=== PATIENT | female | born 1990 | race African-American/Black ===

== ENCOUNTER 2018-08-01 13:12 | Emergency (ER) | payer OTHER ==
[2018-08-01 13:43] VITALS: BP 113/67; PULSE 86; TEMP 98.1; BMI 39.4
--- NOTE | 2018-08-01 13:43 | PDOC ---
Rapid Medical Evaluation Chief Complaint: Vaginal Bleeding Time Seen by Provider: 08/01/18 13:41 Medical Evaluation: Allergies Allergy/AdvReac Type Severity Reaction Status Date / Time No Known Allergies Allergy Verified 08/01/18 13:39 08/01/18 13:41 I have performed a brief in-person evaluation of this patient. The patient presents with a chief complaint of:~8 weeks , here w/ vag spotting since yesterday. No clots, abd pain, dysuria, n/v/f/c. . No care or US as of yet Pertinent physical exam findings:Stable I have ordered the following:labs/US The patient will proceed to the ED for further evaluation. Discharge Disposition - Diagnosis Vaginal bleeding - Referrals - Patient Instructions - Post Discharge Activity
[2018-08-01 14:29] LABS: URINE APPEARANCE CLEAR; URINE BILIRUBIN NEGATIVE (<2.0 mg/dL); URINE COLOR YELLOW; URINE GLUCOSE (UA) NEGATIVE (NEGATIVE); URINE KETONE NEGATIVE (NEGATIVE); URINE LEUK ESTERASE NEGATIVE (NEGATIVE); URINE NITRITE NEGATIVE (NEGATIVE); URINE PROTEIN NEGATIVE (NEGATIVE)
[2018-08-01 14:57] LABS: EPI CELLS RARE /HPF (FEW); URINE MUCUS RARE
--- NOTE | 2018-08-01 15:06 | PDOC ---
History of Present Illness - General Chief Complaint: Vaginal Bleeding Stated Complaint: VAGINAL BLEEDING Time Seen by Provider: 08/01/18 13:41 History Source: Patient Exam Limitations: No Limitations - History of Present Illness Initial Comments: 08/01/18 15:06 CHIEF COMPLAINT: Vaginal bleeding HISTORY OF PRESENT ILLNESS: This is an otherwise healthy 28-year-old female LMP 12/5 who presents with scant vaginal bleeding yesterday, none today. She denies abdominal pain, back pain, dysuria, or any other symptoms. Patient does not have an fuel efficient aircraft designer. REVIEW OF SYSTEMS: GENERAL/CONSTITUTIONAL: No fever or chills. No weakness. No weight change. CARDIOVASCULAR: No chest pain or palpitations. RESPIRATORY: No cough, wheezing, or shortness of breath. GASTROINTESTINAL: No nausea, vomiting, diarrhea or constipation. GENITOURINARY: See HPI. MUSCULOSKELETAL: No joint or muscle swelling or pain. No neck or back pain. SKIN: No rash or easy bruising. NEUROLOGIC: No headache, vertigo, loss of consciousness, or loss of sensation. PSYCHIATRIC: No depression or anxiety. ENDOCRINE: No increased thirst. No abnormal weight change. HEMATOLOGIC/LYMPHATIC: No anemia, easy bleeding, or history of blood clots. ALLERGIC/IMMUNOLOGIC: No hives or skin allergy. No latex allergy. PHYSICAL EXAM: GENERAL: The patient is awake, alert, and fully oriented, in no acute distress. HEAD: Normal with no signs of trauma. ENT: Pupils equal, round and reactive to light, extraocular movements intact, sclera anicteric, conjunctiva clear. Neck supple. LUNGS: Clear to auscultation bilaterally. Normal excursion. No respiratory distress or use of accessory muscles. CV: RRR, S1/S2, no MRG. Cap refill < 2 sec. ABDOMEN: Soft, non-distended, non-tender. EXTREMITIES: Normal range of motion, no edema. NEUROLOGICAL: Normal speech, normal gait. CN II-XII grossly intact. PSYCH: Normal mood, normal affect. SKIN: Warm, dry, normal turgor, no rashes or lesions noted. ROAD GRADER: Normal external exam. Cervical os is closed. No CMT or adnexal tenderness. No vaginal bleeding. Past History - Past Medical History Allergies/Adverse Reactions: Allergies Allergy/AdvReac Type Severity Reaction Status Date / Time No Known Allergies Allergy Verified 08/01/18 13:39 Home Medications: Ambulatory Orders NK [No Known Home Medication] 08/01/18 COPD: No - Immunization History Immunization Up to Date: Yes - Suicide/Smoking/Psychosocial Hx Smoking History: Never smoked *Physical Exam - Vital Signs Last Vital Signs Temp Pulse Resp BP Pulse Ox 98.1 F 86 18 113/67 99 08/01/18 13:40 08/01/18 13:40 08/01/18 13:40 08/01/18 13:40 08/01/18 13:40 Moderate Sedation - Procedure Monitoring Vital Signs: Procedure Monitoring Vital Signs Temperature 98.1 F 08/01/18 13:40 Pulse Rate 86 08/01/18 13:40 Respiratory Rate 18 08/01/18 13:40 Blood Pressure 113/67 08/01/18 13:40 O2 Sat by Pulse Oximetry (%) 99 08/01/18 13:40 ED Treatment Course - ADDITIONAL ORDERS Additional order review: Laboratory Results 08/01/18 02:09 Urine Color Yellow Urine Appearance Clear Urine pH 6.0 Ur Specific [place] 1.018 Urine Protein Negative Urine Glucose (UA) Negative Urine Ketones Negative Urine Blood 2+ H Urine Nitrite Negative Urine Bilirubin Negative Urine Urobilinogen 2.0 H Ur Leukocyte Esterase Negative Urine WBC (Auto) 1 Urine RBC (Auto) 4 Ur Epithelial Cells Rare Urine Mucus Rare Medical Decision Making - Medical Decision Making 08/01/18 17:18 A/P: 28-year-old female with first trimester vaginal bleeding. 1. Labs notable for beta hCG [id number] 2. Blood type is Rh+ 3. Ultrasound reviewed: Single live IUP 10 weeks 4 days with heart rate of 141 *DC/Admit/Observation/Transfer Diagnosis at time of Disposition: Threatened - Discharge Dispostion Disposition: HOME Condition at time of disposition: Stable Decision to Admit order: No - Referrals Referrals: Jean-Pierre Pittman MD [Staff Physician] - - Patient Instructions Printed Discharge Instructions: Vaginal Bleeding During Additional Instructions: Rest and avoid any sexual activity while bleeding Take vitamins as prescribed Follow up with fuel efficient aircraft designer (referral enclosed if you do not have one) Return here for bleeding more than one pad per hour or any other concerning symptoms - Post Discharge Activity
== END 2018-08-01 17:26 | disposition home or self-care (01) ==
LOC: JER 13:12
DX: O26.891 Other specified pregnancy related conditions, first trimester (principal); Z3A.00 Weeks of gestation of pregnancy not specified; O20.0 Threatened abortion
CPT/HCPCS: 36415; 76817-TC; 81003; 81015; 84702; 86850; 86900; 86901; 99283-25

== ENCOUNTER 2018-08-25 19:57 | Emergency (ER) | payer OTHER ==
[2018-08-25 20:02] VITALS: BP 131/78; PULSE 87; TEMP 97.7; BMI 44.4
--- NOTE | 2018-08-25 20:23 | PDOC ---
Attending Attestation - HPI HPI: 08/25/18 22:06 The patient is a 28-year-old female with no reported past medical history presents to the emergency department with vaginal bleeding. The patient reports at 5:00 pm today she had mild cramping, following she noticed blood on the toilet paper. The patient states she used tissue for the blood, and since the presentation, she had to change the tissue twice. The patient was seen at the ER for similar symptoms on 08/01/2018, during the visit the patient had u/s done , which was significant for Single live IUP 10 weeks 4 days with a heart rate of 141. The patient reports she has an appointment with [facility] on the of this month. The patient denies having bleeding during prior pregnancies. - Physicial Exam PE: 08/25/18 21:57 GENERAL: The patient is in no acute distress. HEAD: Normal with no signs of trauma. EYES: PERRLA, EOMI, sclera anicteric, conjunctiva clear. ENT: Ears normal, nares patent, oropharynx clear without exudates. Moist mucous membranes. NECK: Normal range of motion, supple without lymphadenopathy, JVD, or masses. LUNGS: Breath sounds equal, clear to auscultation bilaterally. No wheezes, and no crackles. HEART:Regular rate and rhythm, normal S1 and S2 without murmur, rub or gallop. ABDOMEN: No lower abdominal tenderness, no guarding or rebound. No masses palpable. EXTREMITIES: Normal range of motion, no edema. No clubbing or cyanosis. No erythema, or tenderness. NEUROLOGICAL: Cranial nerves II through XII grossly intact. Normal speech. No focal neurological deficits. MUSCULOSKELETAL: Back non-tender to palpation, no CVA tenderness SKIN: Warm, Dry, normal turgor, no rashes or lesions noted. - Medical Decision Making 08/25/18 22:06 Documentation prepared by Tatyana Orlando, acting as medical legal investigator for Taylor Barrios MD. <Tatyana Orlando - Last Filed: 08/25/18 22:06> - Resident Resident Name: [email or web address] - ED Attending Attestation I have performed the following: I have examined & evaluated the patient, The case was reviewed & discussed with the resident, I agree w/resident's findings & plan, Exceptions are as noted - Medical Decision Making 28 yo F approximately 14 weeks presenting to the ER with a complaint of vaginal bleeding Pt had abdominal cramping Not saturating pads Was seen in this er 3 weeks ago for the same Was asked to follow up with OB Pt had an appointment for 09/0608/25/18 22:55 Laboratory Tests 08/25/18 08/25/18 08/25/18 20:38 20:38 20:40 WBC 7.0 Hgb 11.7 Hct 31.8 L Plt Count 193 BUN 9 Creatinine 0.7 Beta HCG, Quant 31874.6 Urine Blood 3+ H Urine Nitrite Negative Ur Leukocyte Esterase 1+ H Urine WBC (Auto) 5 Urine RBC (Auto) 3 US: IUP, FHR COMPARISON: None. Findings: Single live intrauterine with cardiac activity heart 144 bpm. Placenta is anterior in location, not low lying. No evidence of retroplacental hematoma. [place]-rump length measurement 15 weeks 1 day. BPD 14 weeks 5 days. Head circumference 14 weeks 5 days Abdominal circumference 14 weeks 5 days. Femur length 14 weeks 1 day. Impression: 1. Single live intrauterine at approximately 14 weeks 5 days ?1 week 0 days estimated gestational age. VITA based on ultrasound criteria February 18, 2019; clinical dating February 20, 2019. 2. Estimated weight 97.4 g ?14.61 g; EFW-GP 34.3% 08/25/18 22:56 Laboratory Tests 08/01/18 14:30 Blood Type A POSITIVE ? UTI Will give Keflex Follow up with OB as scheduled <Taylor Barrios - Last Filed: 08/25/18 22:59>
--- NOTE | 2018-08-25 20:41 | PDOC ---
History of Present Illness - General Chief Complaint: Vaginal Bleeding Stated Complaint: 13 WEEKS BLEEDING Time Seen by Provider: 08/25/18 20:19 - History of Present Illness Initial Comments: 08/25/18 20:35 Patient is a 28 y/o [id number] female wit no medical history who presents for vaginal bleeding. She was recently in the ED three weeks ago for vaginal bleeding. She reports around 5 pm she had mild cramps and noticed blood on tissue after. She reports she uses tissue to keep the blood off and had to change the tissue twice. She did not feel like it was a lot of blood and the cramping was not that intense. The cramping has since resolved. She has an appointment with an OBGYN but it is not until the . Her other three pregnancies were all to term and delivered via [facility]set[facility]. She reports she did not have any problems with her other pregnancies. Patient came in from [facility] in May. The only medication she takes is her pre becca vitamins. Patient has some morning nausea. She denies pain on urination, increased urinary frequency, diarrhea, or pain. She is 14 weeks . 08/25/18 20:42 f/u CBC, CMP, UA, US 08/25/18 21:50 US: single live intrauterine 14 weeks, 144 bpm heart rate, placenta anterior, no hematoma 08/25/18 22:42 Positive UA, will send home on Keflex for five days Past History - Past Medical History Allergies/Adverse Reactions: Allergies Allergy/AdvReac Type Severity Reaction Status Date / Time No Known Allergies Allergy Verified 08/01/18 13:39 Home Medications: Ambulatory Orders Pnv No.95/Ferrous Fum/Folic AC [ Vitamin Tablet] 1 each PO DAILY #30 tablet 08/01/18 Cephalexin [Keflex] 500 mg PO Q12H #10 capsule 08/25/18 COPD: No - Reproductive History Ectopic : No Tubal Ligation: No - Immunization History Immunization Up to Date: Yes - Suicide/Smoking/Psychosocial Hx Smoking History: Unknown if ever smoked Hx Alcohol Use: No Drug/Substance Use Hx: No Review of Systems - Review of Systems Constitutional: No: Chills, Fever, Weakness Respiratory: No: Cough, Shortness of Breath Cardiac (ROS): No: Chest Pain ABD/GI: Yes: Nausea. No: Constipated, Diarrhea, Vomiting : No: Burning, Dysuria, Hematuria Musculoskeletal: No: Back Pain *Physical Exam - Vital Signs Last Vital Signs Temp Pulse Resp BP Pulse Ox 97.7 F 87 20 131/78 100 08/25/18 20:00 08/25/18 20:00 08/25/18 20:00 08/25/18 20:00 08/25/18 20:00 - Physical Exam Comments: 08/25/18 20:39 General: A&O x3, no acute distress HEART: RRR, no murmurs, rubs or gallops LUNGS: CTAL B/L GI: soft, gravid uterus : deferred since in 2nd week trimester EXTREMITES: no pitting edema NEURO: gait normal SKIN: no rashes or lesions noted Moderate Sedation - Procedure Monitoring Vital Signs: Procedure Monitoring Vital Signs Temperature 97.7 F 08/25/18 20:00 Pulse Rate 87 08/25/18 20:00 Respiratory Rate 20 08/25/18 20:00 Blood Pressure 131/78 08/25/18 20:00 O2 Sat by Pulse Oximetry (%) 100 08/25/18 20:00 ED Treatment Course - LABORATORY CBC & Chemistry Diagram: 08/25/18 20:38 08/25/18 20:38 *DC/Admit/Observation/Transfer Diagnosis at time of Disposition: Vaginal bleeding UTI (urinary tract infection) Qualifiers: Urinary tract infection type: acute cystitis Hematuria presence: without hematuria Qualified Code(s): N30.00 - Acute cystitis without hematuria - Discharge Dispostion Disposition: HOME Condition at time of disposition: Good - Prescriptions Prescriptions: Cephalexin [Keflex] 500 mg PO Q12H #10 capsule - Referrals - Patient Instructions Printed Discharge Instructions: Urinary Tract Infection Additional Instructions: You came to the Emergency Department for vaginal bleeding. We did an ultrasound that shows your is okay. We did lab work that showed your blood levels are stable. Your urine showed an infection, to treat the infection please take: Keflex 500 mg by mouth twice a day for 5 day Please make sure you follow up with your OBGYN appointment on the Please return to the Emergency Department if you have cramping, large amounts of bleeding, feel dizzy, nauseous, chest pain, or shortness of breath. - Post Discharge Activity
[2018-08-25 20:52] LABS: URINE APPEARANCE SLCLOUDY; URINE BILIRUBIN NEGATIVE (<2.0 mg/dL); URINE COLOR LTYELLOW; URINE GLUCOSE (UA) NEGATIVE (NEGATIVE); URINE KETONE TRACE (NEGATIVE); URINE LEUK ESTERASE 1+ (NEGATIVE); URINE NITRITE NEGATIVE (NEGATIVE); URINE PROTEIN NEGATIVE (NEGATIVE); URINE UROBILINOGEN NEGATIVE mg/dL (0.2-1.0)
[2018-08-25 21:00] LABS: EPI CELLS RARE /HPF (FEW); URINE BACTERIA RARE /hpf (NONE SEEN)
[2018-08-25 21:34] LABS: ALBUMIN 3.2 g/dl (3.4-5.0); ALK PHOS 63 U/L (45-117); ANION GAP 7 MMOL/L (8-16); BILIRUBIN,TOTAL 0.3 mg/dL (0.2-1); BLOOD UREA NITROGEN 9 mg/dL (7-18); CALCIUM 8.4 mg/dL (8.5-10.1); CHLORIDE 106 mmol/L (98-107); CO2 25 mmol/L (21-32); CREATININE 0.7 mg/dL (0.55-1.3); GLUCOSE,RANDOM 102 mg/dL (74-106); POTASSIUM 3.5 mmol/L (3.5-5.1); SGOT/AST 14 U/L (15-37); SGPT/ALT 15 U/L (13-61); SODIUM 137 mmol/L (136-145); TOT PROT 6.8 g/dl (6.4-8.2)
[2018-08-25 22:06] LABS: BASO % 0.2 % (0-2.0); EOS % 1.4 % (0-4.5); HEMATOCRIT 31.8 % (32.4-45.2); HEMOGLOBIN 11.7 GM/dL (10.7-15.3); LYMPH % 22.2 % (8-40); MCH 33.2 pg (25.7-33.7); MCHC 36.8 g/dl (32.0-36.0); MEAN CELL VOLUME 90.2 fl (80-96); MEAN PLT VOLUME 8.3 fl (7.5-11.1); MONO % 7.4 % (3.8-10.2); NEUT % 68.8 % (42.8-82.8); PLATELET COUNT 193 K/MM3 (134-434); RBC 3.52 M/mm3 (3.60-5.2); RDW 14.2 % (11.6-15.6)
== END 2018-08-25 23:15 | disposition home or self-care (01) ==
LOC: JER 19:57
DX: O26.892 Other specified pregnancy related conditions, second trimester (principal); O20.8 Other hemorrhage in early pregnancy; O23.12 Infections of bladder in pregnancy, second trimester; N30.00 Acute cystitis without hematuria; Z3A.14 14 weeks gestation of pregnancy
CPT/HCPCS: 36415; 76801-TC; 80053; 81003; 81015; 84702; 85025; 87086; 99282-25